=== PATIENT | male | born 1940 | race Caucasian/White ===

== ENCOUNTER 2017-02-24 15:44 | Emergency (ER) | payer OTHER ==
[2017-02-24 16:28] VITALS: BP 154/85
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
== END 2017-02-24 17:10 | disposition left against medical advice (07) ==
LOC: ED 15:44
DX: Z04.1 Encounter for examination and observation following transport accident (principal); Z87.891 Personal history of nicotine dependence; Z88.2 Allergy status to sulfonamides; V43.52XA Car driver injured in collision with other type car in traffic accident, initial encounter; Y93.89 Activity, other specified; Y99.8 Other external cause status; Y92.488 Other paved roadways as the place of occurrence of the external cause
CPT/HCPCS: 99283